=== PATIENT | male | born 1995 | race African-American/Black ===

== ENCOUNTER 2023-02-15 23:38 | Emergency (ER) | payer OTHER ==
[2023-02-15 23:47] VITALS: BP 143/75; PULSE 84; RESP 16; TEMP 98.2; BMI 26.6
== END 2023-02-16 00:08 | disposition home or self-care (01) ==
LOC: FER 23:38
PROC: 0HQGXZZ Repair Left Hand Skin, External Approach (ICD-10-PCS; principal; 2023-02-15)
DX: S61.211A Laceration without foreign body of left index finger without damage to nail, initial encounter (principal); W26.0XXA Contact with knife, initial encounter
CPT/HCPCS: 99282-25